=== PATIENT | female | born 1995 | race Caucasian/White ===

== ENCOUNTER 2019-08-15 11:30 | Inpatient (IN) | payer OTHER ==
[2019-08-15] MEDS ORDERED: NS 0.9% 1000 ML** 1,000 ML IV ONE ×2 (11:40→14:05)
[2019-08-15] MEDS ORDERED: Albuterol (2.5 MG) 0.5 % CONC 2.5 MG/0.5 ML NEB.SOLN (ICU and ED only) INH ONE (11:52)
--- NOTE | 2019-08-15 11:55 | ED ---
Respiratory - HPI Summary HPI Summary: Pt is a 23 y/o F presenting to the ED with a chief respiratory complaint. She states that she had a fever initially onset 11 days ago, highest recorded temperature was 102. She was tested for Lyme at , and also went to [facility] where they found fluid in her lungs. She reports SOB, chills, cough, and hoarseness. Sx worse in the morning. She denies recent travel. From [facility] yesterday (08/14/19) her WBC was 22, ESR 85, temperature 101 , HR 114. She was sent home on Azithromycin. - History of Current Complaint Chief Complaint: EDShortnessOfBreath Stated Complaint: POSSIBLE PNEUMONIA Time Seen by Provider: 08/15/19 11:39 Hx Obtained From: Patient Onset/Duration: Gradual Onset, Lasting Days, Still Present Timing: Constant Initial Severity: Mild Current Severity: None Pain Intensity: 0 Character: Cough (Nonproductive) Sputum Amount: None Aggravating Factor(s): Other - worse in the morning Alleviating Factor(s): Nothing Associated Signs and Symptoms: Fever, SOB, Chills, Hoarseness - Allergy/Home Medications Allergies/Adverse Reactions: Allergies Allergy/AdvReac Type Severity Reaction Status Date / Time amoxicillin Allergy Hives Verified 08/15/19 11:37 Penicillins Allergy Hives Verified 08/15/19 11:37 Home Medications: Home Medications Albuterol inh POWDER (NF) [Proair Respiclick] 1 puff INH Q6HR PRN 08/15/19 [ History Confirmed 08/15/19] Azithromycin TAB* [Zithromax TAB (Z-CAMELIA) 250 mg #6 tabs] 2 tab PO .TODAY, THEN 1 DAILY 08/15/19 [History Confirmed 08/15/19] Benzonatate CAP* [Tessalon 100 MG CAP*] 100 mg PO TID PRN 08/15/19 [History Confirmed 08/15/19] PMH/Surg Hx/FS Hx/Imm Hx Previously Healthy: Yes Endocrine/Hematology History: Denies: Hx Diabetes Respiratory History: Reports: Hx Asthma Infectious Disease History: No Infectious Disease History: Denies: Traveled Outside the [place] in Last 30 Days - Family History Known Family History: Positive: Hypertension Negative: Diabetes - Social History Occupation: Student Alcohol Use: Occasionally Hx Substance Use: No Substance Use Type: Reports: None Hx Tobacco Use: No Smoking Status (MU): Never Smoked Tobacco Review of Systems Positive: Fever, Chills, Other - hoarseness Positive: Shortness Of Breath, Cough All Other Systems Reviewed And Are Negative: Yes Physical Exam - Summary Physical Exam Summary: Constitutional: Well-developed, Well-nourished, Alert. (-) Distressed Skin: Warm, Dry HENT: Normocephalic; Atraumatic Eyes: Conjunctiva normal Neck: Musculoskeletal ROM normal neck. (-) JVD, (-) Stridor, (-) Nuchal rigidity Cardio: Rhythm regular, rate tachycardic, Heart sounds normal; Intact distal pulses; Radial pulses are 2+ and symmetric. (-) Murmur Pulmonary/Chest wall: No respiratory distress. Rhonchi in the R upper lobe Abd: Soft, (-) tenderness, (-) Distension, (-) Guarding, (-) Rebound Musculoskeletal: (-) Edema Lymph: (-) Cervical adenopathy Neuro: Alert, Oriented x3 Psych: Mood and affect Normal Triage Information Reviewed: Yes Vital Signs On Initial Exam: Initial Vitals Temp Pulse Resp BP Pulse Ox 97.2 F 112 16 100/66 98 08/15/19 11:34 08/15/19 11:34 08/15/19 11:34 08/15/19 11:34 08/15/19 11:34 Vital Signs Reviewed: Yes Diagnostics - Vital Signs Vital Signs Temp Pulse Resp BP Pulse Ox 08/15/19 11:34 97.2 F 112 16 100/66 98 - Laboratory Result Diagrams: 08/15/19 11:58 08/15/19 11:58 Lab Statement: Any lab studies that have been ordered have been reviewed, and results considered in the medical decision making process. - Radiology CXR Radiology Interpretation Completed By: Radiologist Summary of Radiographic Findings: System with upper right lobe pneumonia. ED physician has reviewed this report. Re-Evaluation - Re-Evaluation First Eval Change: Improved Comment: HR in 120's, likely still elevated 2/2 albuterol. WBC dec to 18 from 22. RUL infiltrate similar to prior. BP 90's systolic, afebrile. Plan for re- eval after IVF. Given azithromycin here for abx, patient reports fam hx cephalosporins therefore will hold ceftriaxone 2nd re-eval Re-Evaluation Time: 14:17 Change: Improved Comment: Pt's HR in 110's. Will give another liter of fluids and pend improvement. 3rd re-eval Re-Evaluation Time: 14:58 Change: Unchanged Comment: Pt is still tachycardic. Finishing 2L of fluids. 4th re-eval Re-Evaluation Time: 15:23 Change: Unchanged Comment: I informed pt of plan to admit for pneumonia and tachycardia. Disposition - Course Course Of Treatment: 23 y/o F w recently diagnosed PNA p/w cough, SOB, persistent tachycardia. - check labs, give IVF, azithromycin and ceftriaxone for CAP check BC. - will give albuterol give hx asthma - Diagnoses Provider Diagnoses: Pneumonia, Tachycardia - Physician Notifications Discussed Care Of Patient With: Yolande Talley Time Discussed With Above Provider: 15:20 Instructed by Provider To: Admit As Inpatient Discharge ED - Sign-Out/Discharge Documenting (check all that apply): Patient Departure - Discharge Plan Condition: Stable Disposition: ADMITTED TO [facility] - Billing Disposition and Condition Condition: STABLE Disposition: Admitted to [facility] - Attestation Statements Document Initiated by Scribe: Yes Documenting Scribe: Evita Garibay Provider For Whom Scribe is Documenting (Include Credential): Juaquin Cisneros MD. Scribe Attestation: I, Evita Garibay, scribed for Juaquin Cisneros MD. on 08/15/19 at 1742. Scribe Documentation Reviewed: Yes Provider Attestation: The documentation as recorded by the scribe, Evita Garibay accurately reflects the service I personally performed and the decisions made by me, Juaquin Cisneros MD. Status of Scribe Document: Viewed Consult Consult: 1241 - I spoke with Dr. You who states that the R upper lobe pneumonia looks similar to yesterday. 1445 - I spoke with Dr. Talley who recommends re-evaluation after another liter of fluids. 1520 - Dr. Talley accepts for admission.
[2019-08-15] MEDS ORDERED: Albuterol 2.5 MG/3 ML NEB.SOL* (0.083%) INH ONE (12:39)
[2019-08-15 12:41] LABS: ALT 12 U/L (7-52); AST 10 U/L (13-39); Albumin 3.1 g/dL (3.2-5.2); Albumin/Globulin Ratio 1.1 (1-3); Alkaline Phosphatase 66 U/L (34-104); BUN/Creatinine Ratio 25.6 (8-20); Blood Urea Nitrogen 10 mg/dL (6-24); CO2 Carbon Dioxide 28 mmol/L (22-32); Chloride 103 mmol/L (101-111); EGFR Non-African American 207.5 (>60); Globulin 2.8 g/dL (2-4); Glucose 90 mg/dL (70-100); Total Protein 5.9 g/dL (6.4-8.9)
[2019-08-15 12:47] LABS: HCG Pregnancy < 0.60 mIU/mL
[2019-08-15] MEDS ORDERED: Azithromycin 500 mg/250 ml NS 500 MG/250 ML BAG IVPB ONE (13:00)
[2019-08-15] MEDS ORDERED: cefTRIAXone(*) 1 GM in NS 0.9% 50 ML* 50 ML IVPB ONE (13:00)
[2019-08-15] MEDS ORDERED: Acetaminophen TAB* 325 MG PO ONE (13:01)
[2019-08-15 13:07] LABS: ABS Eosinophils 0.2 10^3/ul (0-0.6); ABS Monocytes 1.1 10^3/ul (0-0.8); ABS Neutrophils 16.2 10^3/ul (1.5-7.7); Eosinophil % 1.1 %; Hematocrit 28 % (35-47); Hemoglobin 9.6 g/dL (12.0-16.0); Lymphocyte % 5.4 %; Mean Corpuscular HGB Conc 34 g/dL (31-36); Mean Corpuscular Hemoglobin 31 pg (27-31); Mean Corpuscular Volume 90 fL (80-97); Mean Platelet Volume 8.1 fL (7.4-10.4); Platelet Count 409 10^3/uL (150-450); Red Blood Count 3.14 10^6 /uL (3.70-4.87); Red Cell Distribution Width 13 % (10-15); White Blood Count 18.6 10^3/uL (3.5-10.8)
[2019-08-15 13:24] LABS: Anion Gap 8 mmol/L (2-11); Potassium 4.2 mmol/L (3.5-5.0); Sodium 139 mmol/L (135-145)
[2019-08-15 13:25] LABS: Calcium 8.5 mg/dL (8.6-10.3)
[2019-08-15 13:31] LABS: Influenza A Molecular NEGATIVE (Negative); Influenza B Molecular NEGATIVE (Negative)
[2019-08-15] MEDS ORDERED: Levalbuterol 1.25MG/0.5ML NEB INH PRN (16:12)
[2019-08-15] MEDS: Benzonatate CAP* 100 MG PO PRN (17:55)
--- NOTE | 2019-08-15 18:34 | HP ---
CC: [facility] * HISTORY AND PHYSICAL: DATE OF ADMISSION: 08/15/19 PRIMARY CARE PROVIDER: [facility]. CHIEF COMPLAINT: Cough, tachycardia, and fever. HISTORY OF PRESENT ILLNESS: Ms. Thakur is a 23-year-old female who states that approximately 11 days ago she began with a fever. She generally has been feeling poorly, but managing the fever with intermittent ibuprofen dosing. Approximately 3 days ago, she began to have significant cough and she lost her voice completely. She states her voice is now back, however, she continues to have cough. The patient was seen at [facility] yesterday and was started on Z-Jaya for concern of pneumonia. The day prior, she was seen at [facility] and was tested for Lyme disease and other possible sources of fever , however, was not evaluated for respiratory illness. Despite being started on the Z-Jaya, she has continued to have cough and fever. She states temperature this morning was 101. She followed up at [facility] today and it was noted that she was tachycardic. She was referred to the emergency room for evaluation. The patient does state that she has been bringing up sputum when she coughs, she has not inspected it. She has not had any recent travel outside of going to [place] at the end of June. In October 2018, however, the patient spent a month in [place]. She spent November through March of 2018 in [place], studying abroad. PAST MEDICAL HISTORY: None. PAST SURGICAL HISTORY: Tonsillectomy. MEDICATIONS: 1. Z-Jaya. 2. Tessalon Perles. 3. P.r.n. ibuprofen. ALLERGIES: PENICILLIN, which causes hives. FAMILY HISTORY: Mom is living, she is 51, has a history of hypertension and melanoma. Dad is living, he is 53, has a history of melanoma. SOCIAL HISTORY: The patient does not smoke. She drinks alcohol on occasion. 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 She is not . She has no children. She indicates that her mom, Domenica, would be her healthcare proxy. REVIEW OF SYSTEMS: A complete 11-system review of systems is obtained. Pertinent positives and negatives are as per HPI and otherwise negative. PHYSICAL EXAMINATION GENERAL: The patient is a well-developed young female seen sitting up in the stretcher, in no acute distress. VITAL SIGNS: Blood pressure 107/66, pulse 109, respirations 16, temp 97.2, O2 sat 96% on room air. HEENT: Pupils are equal and round. Extraocular muscles are intact. Oropharynx is clear. Oral mucosa is moist. There is no submandibular, cervical , or supraclavicular adenopathy. Thyroid is not enlarged. No thyroid nodules are noted. PULMONARY: Lungs are clear to auscultation bilaterally. CARDIAC: Normal S1, S2. Heart rate is tachycardic, but regular. There is no lower extremity edema. ABDOMEN: Bowel sounds present. Abdomen is soft, nontender, nondistended. MUSCULOSKELETAL: There is no cyanosis or clubbing of the digits. There is full active range of motion of all 4 extremities. NEURO: Cranial nerves II through XII are grossly intact. Sensation is intact to light touch throughout. Strength is 5/5 and symmetric in both upper and lower extremities bilaterally. PSYCH: The patient is alert. She is oriented x3. Affect appears appropriate. SKIN: Visible areas of skin are warm and dry and without rash. DIAGNOSTIC STUDIES/LAB DATA: WBC 18.6, hemoglobin 9.6, hematocrit 28, platelets 409. Sodium 139, potassium 4.2, chloride 103, CO2 of 28, BUN 10, creatinine 0.39, glucose 90, calcium 8.5. Bilirubin 0.3, AST 10, ALT 12, alk phos 66. Albumin 3.1. Influenza A and B negative. ASSESSMENT AND PLAN: Ms. Thakur is a 23-year-old female with no significant past medical history who presents to the emergency room after being reevaluated at [facility] for concerns of pneumonia and found to be tachycardic. 1. Sepsis secondary to community-acquired pneumonia. By definition, the patient is septic with tachycardia and leukocytosis secondary to a right upper lobe pneumonia. Clinically, however, the patient does not appear toxic. Due to her persistent tachycardia and relative hypotension, the decision is to admit the patient to the emergency room to receive IV fluids and IV antibiotics. The patient will also undergo CT scan of the chest to better differentiate the right upper lobe infiltrate. She has been receiving azithromycin for the last 2 days outpatient, and while this may be effective, I am concerned about the resistance rates of the azithromycin and the fact that it is likely not the best choice for a lobar pneumonia. I will send off sputum culture as well as urine for Strep pneumoniae and Legionella antigen. 2. DVT prophylaxis. According to the Adult Thrombosis Prophylaxis Risk Factor Assessment Guide, the patient has a total risk factor score of 0, making her low risk. Ambulation will be utilized as DVT prophylaxis. 3. Code status is full. TIME SPENT: Forty five minutes was spent admitting this patient. [id number]/[facility]PS #: [id number] MTDD
[2019-08-15] MEDS: Calcium Carbonate CHEW TAB* 500 MG (TUMS) PO PRN (21:09)
[2019-08-15] MEDS: Acetaminophen TAB* 325 MG PO PRN (21:09)
[2019-08-16] MEDS: Benzonatate CAP* 100 MG PO PRN ×3 (01:55→18:25)
[2019-08-16] MEDS: NS 0.9% 1000 ML** 1,000 ML IV SCH ×2 (03:31→14:00)
[2019-08-16] MEDS: Acetaminophen TAB* 325 MG PO PRN ×3 (04:49→18:25)
--- NOTE | 2019-08-16 14:47 | PN ---
Subjective Date of Service: 08/16/19 Interval History: Pt is feeling still lousy. She continues to have discomfort in her R chest/R scapula area. She is not coughing as much with the cough suppressant. She is still having tachycardia and fever. Objective Active Medications: Acetaminophen (Tylenol Tab*) 650 mg PO Q6H PRN PRN Reason: MILD PAIN or TEMP > 100.4 Last Admin: 08/16/19 10:30 Dose: 650 mg Benzonatate (Tessalon Cap*) 200 mg PO TID PRN PRN Reason: cough Last Admin: 08/16/19 10:30 Dose: 200 mg Calcium Carbonate (Tums*) 500 mg PO Q4H PRN PRN Reason: INDIGESTION Last Admin: 08/15/19 21:09 Dose: 500 mg Levofloxacin/Dextrose (Levaquin 500 Mg Ivpremix(*)) 500 mg in 100 mls @ 100 mls /hr IVPB Q24H JENELLE; Protocol Sodium Chloride (Ns 0.9% 1000 Ml) 1,000 mls @ 100 mls/hr IV PER RATE JENELLE Last Admin: 08/16/19 14:00 Dose: 100 mls/hr Levalbuterol HCl (Xopenex 1.25 Mg/0.5 Ml Neb.Glenda*) 1.25 mg INH Q6H PRN PRN Reason: SOB/WHEEZING Vital Signs - 8 hr 08/16/19 08/16/19 08/16/19 07:15 08:00 11:05 Temperature 98.4 F 99.4 F Pulse Rate 99 111 Respiratory 18 18 18 Rate Blood Pressure 96/53 109/66 (mmHg) O2 Sat by Pulse 97 97 Oximetry Oxygen Devices in Use Now: None Appearance: Young female sitting up in bed, NAD Eyes: No Scleral Icterus Ears/Nose/Mouth/Throat: Mucous Membranes Moist Respiratory: Symmetrical Chest Expansion and Respiratory Effort, Clear to Auscultation Cardiovascular: NL Sounds; No Murmurs; No JVD, No Edema, - - mildly tachycardic , regular Abdominal: NL Sounds; No Tenderness; No Distention Extremities: No Clubbing, Cyanosis Skin: No Nodules or Sclerosis Neurological: Alert and Oriented x 3 Result Diagrams: 08/15/19 11:58 08/15/19 11:58 Microbiology and Other Data: Microbiology 08/16/19 11:00 Gram Stain - Final Sputum 08/15/19 11:59 Aerobic Blood Culture - Preliminary Blood Venous No Growth Day 1 Anaerobic Blood Culture - Preliminary No Growth Day 1 08/15/19 12:00 Aerobic Blood Culture - Preliminary Blood Venous No Growth Day 1 Anaerobic Blood Culture - Preliminary No Growth Day 1 08/15/19 18:03 Legionella Urinary Antigen - Final Urine Negative Legionella Antigen Streptococcus pneumoniae Ag Screen - Final Negative S. pneumo Antigen Assess/Plan/Problems-Billing Miss Thakur is a 23 yo F who has no significant PMHx who presented to the ER with c/o fever and cough and was diagnosed with sepsis secondary to RUL pneumonia. - Patient Problems (1) Community acquired bacterial pneumonia Current Visit: Yes Status: Acute Code(s): J15.9 - UNSPECIFIED BACTERIAL PNEUMONIA SNOMED Code(s): 486997969 Comment: Pt with dense RUL pneumonia. CT shows dense infiltrate with cavitary lesion and possible lung abscess. ID consult today. Urinary antigens negative. Sputum culture pending. Continue levaquin. I would like the patient to be fever free for 24hr prior to d/c and her HR to normalize. She remains septic but stable. (2) DVT prophylaxis Current Visit: Yes Status: Acute Code(s): Z29.9 - ENCOUNTER FOR PROPHYLACTIC MEASURES, UNSPECIFIED SNOMED Code(s): 225696332 Comment: ambulation (3) Full code status Current Visit: Yes Status: Acute Code(s): Z78.9 - OTHER SPECIFIED HEALTH STATUS SNOMED Code(s): 999485098
[2019-08-16 15:00] LABS: C Reactive Protein 216.87 mg/L (<8.01)
[2019-08-16] MEDS: Levofloxacin 500 MG IVPREMIX(* 500 MG/100 ML BAG IVPB SCH (15:14)
--- NOTE | 2019-08-16 17:02 | CONS ---
CONSULTATION REPORT: DATE OF CONSULT: 08/16/19 PRIMARY CARE PROVIDER: [facility]. PROVIDER REQUESTING CONSULTATION: Dr. Yolande Talley. CONSULTING SERVICE: Infectious Disease. PROVIDER: Cass Nevarez NP ATTENDING PROVIDER: Dr. Mark Lozano.* (DICTATED BY CASS NEVAREZ NP) REASON FOR CONSULTATION: Community-acquired pneumonia with possible abscess. IMPRESSION: 1. Community-acquired pneumonia with lung abscess. Based of the chest CT, there is cavitation noted, this likely represents a lung abscess. With a right upper lobe infiltrate, the differential includes tuberculosis. The patient has had no known exposure to tuberculosis. She had traveled for 2 weeks to [place] late last year. She states she gets yearly tuberculosis testing and had recent skin testing approximately few weeks ago that was negative. She has never had a positive TB test in the past. Low suspicion for tuberculosis at this time. The patient continues to have intermittent fevers with a 101.4 temperature overnight, and continued tachycardia. Additionally, she has leukocytosis with a white blood cell count of 18.6. Legionella and S pneumoniae urine antigens negative. Blood cultures with no growth. I suspect this likely represents a Streptococcus pneumonia based on the imaging findings. She has been tolerating the Levaquin well since here in the hospital. 2. Mild asthma. PLAN/RECOMMENDATIONS: Recommend continuing Levaquin. She will likely need an extended course of IV ABX. Further recommendations will be based on the patient' s clinical course. HISTORY OF PRESENT ILLNESS: Ms. Thakur is a 23-year-old female with past medical history significant for mild asthma, who states that approximately 12 to 14 days ago, she developed fever with associated sweats and chills. Otherwise, she was feeling okay. The fever was controlled with ibuprofen as needed. Approximately 4 days ago, she developed a cough and lost her voice. She reports shortness of breath with lying down, pain in her upper right back. Denying nausea, vomiting, diarrhea, urinary symptoms, rash. Denying any recent weight loss. 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 She denies any known TB contacts. She denies any history of long term time, time, penitentiary time. She traveled last year to [place] for 2 weeks, staying in hotels. Additionally, she spent a few months in [place] in early 2018, also staying in hotels. She reports traveling to [place] at the end of June. Due to her continued symptoms, she was seen at [facility] on 08/14/19 and was diagnosed with possible pneumonia and started on azithromycin. On the day prior to that, she was seen at [facility], tested for Lyme disease and other possible sources of fever. After being started on azithromycin, she continued to have cough and fevers with a fever of 101 on the morning of presentation. She reports some sputum production with cough, but is unsure what this looks like. While at [facility], she was noted to be tachycardic and was sent to the emergency room for further evaluation. While in the emergency room, she was noted to be tachycardic with heart rate in the low 100s. She had leukocytosis with white blood cell count of 18.6. Influenza A and B negative. She had a chest x-ray showing right upper lobe pneumonia. She had a chest CT showing right upper lobe pneumonia with cavitation, possibility of a small lung abscess not excluded and possible early infiltrate in the right lower lobe. She was referred to the hospitalist service for admission. While in the hospital, the patient has received Levaquin due to her PENICILLIN allergy. She continues to have a cough, but feels that this is improved with cough suppressants. She last had fever of 101.4 last evening, has been afebrile since. She continues to be tachycardic with heart rates in the lower 100s to 120s. She has had blood cultures with no growth. Urine antigens for Legionella and S pneumoniae negative. She continues to feel not well with some discomfort in her right scapular area. Denying any chest pain. PAST MEDICAL HISTORY: Mild asthma. PAST SURGICAL HISTORY: Status post tonsillectomy and adenoidectomy. MEDICATIONS: Home medications: 1. Tessalon 100 mg by mouth 3 times daily as needed for cough. 2. ProAir 1 puff inhalation every 6 hours as needed for shortness of breath. 3. Azithromycin pack as directed. Hospital medications: 1. Acetaminophen 650 mg by mouth every 6 hours as needed for fever or pain. 2. Tessalon 200 mg by mouth 3 times daily as needed for cough. 3. Tums 500 mg by mouth every 4 hours as needed for indigestion. 4. Xopenex 1.25 mg inhalation every 6 hours as needed for shortness of breath. 5. Levaquin 500 mg IV every 24 hours. 6. Normal saline 100 mL an hour intravenously. ALLERGIES: AMOXICILLIN and PENICILLIN caused hives. FAMILY HISTORY: Denies family history of coronary artery disease, diabetes. Mother alive at age 51 with a history of hypertension and melanoma. Father alive and well at age 53 with a history of melanoma. Paternal side of her family with significant cancer history including prostate, colon, ovarian sarcoma and the liver cancer. SOCIAL HISTORY: She occasionally drinks alcohol. Denies smoking or recreational drug use. REVIEW OF SYSTEMS: I performed a 10-point review of systems, all the pertinent positives and negatives are mentioned in the history of present illness. The remaining review of systems are negative. PHYSICAL EXAM: Vital Signs: Temperature 99.4, heart rate 111, respiratory rate 18, O2 sat 97% on room air, blood pressure 109/66. General Appearance: The patient is alert, pleasant, appears to be in no acute distress. Head: Normocephalic, atraumatic. Pupils reactive to light. Extraocular movements are intact. Moist mucous membranes. Good dentition. Neck: Supple. Neurological: Alert and oriented x4. Cranial nerves II through XII are grossly intact. Cardiovascular: Heart rate is regular, tachycardic. S1 and S2 present. No murmurs, rubs, or gallops heard. Respiratory: Lung sounds are clear to auscultation bilaterally. There was a few scattered rhonchi in the right upper lobe that cleared with cough. Abdomen: Bowel sounds present. Abdomen is soft, nontender, nondistended. Extremities: No lower extremity edema. Musculoskeletal: No clubbing or cyanosis noted. She has good strength in all extremities. Psychological: Calm and cooperative. Skin: No rashes or abnormalities seen. DIAGNOSTIC STUDIES/LABORATORY DATA: Sodium 139, potassium 4.2, chloride 103, CO2 of 28, BUN 10, creatinine 0.39, glucose 90. White blood cell count 18.6, hemoglobin 9.6, hematocrit 28, platelet count 409,000. Please see impression and recommendations outlined above, recommendations have been discussed with Dr. Yolande Talley. Thank you for asking us to see Ms. Thakur in consultation. The case has been reviewed with my attending, Dr. Mark Lozano, who agrees with the plan of care. Reviewed by LACY MARIN-C 08/20/19 09 [id number]/[facility] #: [id number] MTDD
[2019-08-16] MEDS: Calcium Carbonate CHEW TAB* 500 MG (TUMS) PO PRN (18:26)
[2019-08-16] MEDS: guaiFENesin ER TAB 600 MG PO SCH (20:11)
[2019-08-17] MEDS: NS 0.9% 1000 ML** 1,000 ML IV SCH ×2 (02:31→12:56)
[2019-08-17] MEDS: Benzonatate CAP* 100 MG PO PRN (03:22)
[2019-08-17] MEDS: Acetaminophen TAB* 325 MG PO PRN (03:22)
[2019-08-17 05:42] LABS: ABS Basophils 0.1 10^3/ul (0-0.2); ABS Eosinophils 0.2 10^3/ul (0-0.6); ABS Lymphocytes 1.6 10^3/ul (1.0-4.8); ABS Neutrophils 13.3 10^3/ul (1.5-7.7); Eosinophil % 1.3 %; Hematocrit 29 % (35-47); Hemoglobin 9.6 g/dL (12.0-16.0); Lymphocyte % 9.9 %; Mean Corpuscular HGB Conc 33 g/dL (31-36); Mean Corpuscular Hemoglobin 30 pg (27-31); Mean Corpuscular Volume 91 fL (80-97); Mean Platelet Volume 7.7 fL (7.4-10.4); Platelet Count 461 10^3/uL (150-450); Red Blood Count 3.22 10^6 /uL (3.70-4.87); Red Cell Distribution Width 13 % (10-15); White Blood Count 16.1 10^3/uL (3.5-10.8)
[2019-08-17 05:52] LABS: BUN/Creatinine Ratio 15.3 (8-20); C Reactive Protein 170.36 mg/L (<8.01); Calcium 8.8 mg/dL (8.6-10.3); EGFR African American 155.7 (>60); EGFR Non-African American 128.7 (>60); Potassium 3.9 mmol/L (3.5-5.0)
--- NOTE | 2019-08-17 09:27 | PN ---
Subjective Date of Service: 08/17/19 Interval History: HOSPITALIST PROGRESS NOTE Patient seen and examined at bedside. She feels a little better today. Still had night sweats and fever last night. Productive cough is present, cannot tell me sputum color. Has right shoulder pain, but no chest pain. Had some dyspnea yesterday, received Xopenex, and became more tachycardic. Family History: Unchanged from Admission Social History: Unchanged from Admission Past Medical History: Unchanged from Admission Objective Active Medications: Acetaminophen (Tylenol Tab*) 650 mg PO Q6H PRN PRN Reason: MILD PAIN or TEMP > 100.4 Last Admin: 08/17/19 03:22 Dose: 650 mg Benzonatate (Tessalon Cap*) 200 mg PO TID PRN PRN Reason: cough Last Admin: 08/17/19 03:22 Dose: 200 mg Calcium Carbonate (Tums*) 500 mg PO Q4H PRN PRN Reason: INDIGESTION Last Admin: 08/16/19 18:26 Dose: 500 mg Guaifenesin (Mucinex*) 1,200 mg PO BID JENELLE Last Admin: 08/16/19 20:11 Dose: 1,200 mg Levofloxacin/Dextrose (Levaquin 500 Mg Ivpremix(*)) 500 mg in 100 mls @ 100 mls /hr IVPB Q24H [facility]; Protocol Last Admin: 08/16/19 15:14 Dose: 100 mls/hr Sodium Chloride (Ns 0.9% 1000 Ml) 1,000 mls @ 100 mls/hr IV PER RATE [facility] Last Admin: 08/17/19 02:31 Dose: 100 mls/hr Levalbuterol HCl (Xopenex 1.25 Mg/0.5 Ml Neb.Glenda*) 1.25 mg INH Q6H PRN PRN Reason: SOB/WHEEZING Last Admin: 08/16/19 19:12 Dose: 1.25 mg Vital Signs - 8 hr 08/17/19 08/17/19 08/17/19 03:21 07:15 08:00 Temperature 101 F 98.6 F Pulse Rate 120 96 Respiratory 18 16 16 Rate Blood Pressure 110/53 95/58 (mmHg) O2 Sat by Pulse 96 100 Oximetry Oxygen Devices in Use Now: None Appearance: Young lady lying in bed in NAD Eyes: No Scleral Icterus Ears/Nose/Mouth/Throat: Mucous Membranes Moist Neck: Trachea Midline Respiratory: Symmetrical Chest Expansion and Respiratory Effort, - - BS+ bilaterally with crackles on RUL Cardiovascular: RRR - Normal S1 and S2 Extremities: No Edema Neurological: Alert and Oriented x 3, NL Muscle Strength and Tone Result Diagrams: 08/17/19 05:09 08/17/19 05:09 Microbiology and Other Data: Microbiology 08/16/19 11:00 Gram Stain - Final Sputum 08/15/19 11:59 Aerobic Blood Culture - Preliminary Blood Venous No Growth Day 1 Anaerobic Blood Culture - Preliminary No Growth Day 1 08/15/19 12:00 Aerobic Blood Culture - Preliminary Blood Venous No Growth Day 1 Anaerobic Blood Culture - Preliminary No Growth Day 1 08/15/19 18:03 Legionella Urinary Antigen - Final Urine Negative Legionella Antigen Streptococcus pneumoniae Ag Screen - Final Negative S. pneumo Antigen Assess/Plan/Problems-Billing Assessment: Miss Thakur is a 23 yo F who has no significant PMHx who presented to the ER with c/o fever and cough and was diagnosed with sepsis secondary to RUL pneumonia. - Patient Problems (1) Sepsis Comment: - Met sepsis criteria on admission with fever, tachycardia, and leukocytosis. - Source is pneumonia. (2) Community acquired bacterial pneumonia Comment: - Pt with dense RUL pneumonia. CT shows dense infiltrate with cavitary lesion and possible lung abscess. - Urinary antigens negative. Sputum culture pending. Blood cultures show no growth so far. - She still had fever last night, but WBC and CRP are trending down. - Continue Levofloxacin for now. - Will await ID input. - She reports negative HIV and PPD at [facility]. (3) DVT prophylaxis Comment: - Encourage ambulation. (4) Full code status Status and Disposition: Inpatient.
[2019-08-17] MEDS: guaiFENesin ER TAB 600 MG PO SCH ×2 (10:12→21:21)
--- NOTE | 2019-08-17 15:25 | PN ---
Progress Note - Progress Note Date of Service: 08/17/19 SOAP: Subjective: CC: cough HPI: 23 year old woman with 2 weeks fever, cough, right sided anterior and posterior chest pain; ongoing fever and sweats here, pain the same. Some cough. Negative TST 3 months ago. Appetite fair. Objective: Vital Signs Temp 36.9 C 08/17/19 11:15 Pulse 103 08/17/19 11:15 Resp 18 08/17/19 11:15 BP 98/59 08/17/19 11:15 Pulse Ox 99 08/17/19 11:15 Intake & Output 08/16/19 08/17/19 08/17/19 18:59 06:59 18:59 Intake Total 2140 1389 220 Balance 2140 1389 220 Intake: IV Fluids 970 1284 NS (0.9%) 1284 IVPB 105 ABX - LEVOFLOXACIN 105 Oral 1170 0 220 Gen:awake, no distress HEENT: no thrush Heart:RRR no murmur Lungs: no wheeze or rale; decr BS R upper lung field Skin: no rash Abd:+BS NTND soft LN: no palpable nodes MSK: no spine or chest wall tenderness Laboratory Results - last 24 hr 08/17/19 08/17/19 05:09 05:09 WBC 16.1 H RBC 3.22 L Hgb 9.6 L Hct 29 L MCV 91 MCH 30 MCHC 33 RDW 13 Plt Count 461 H D MPV 7.7 Neut % (Auto) 82.3 Lymph % (Auto) 9.9 Villalba % (Auto) 6.1 Eos % (Auto) 1.3 Baso % (Auto) 0.4 Absolute Neuts (auto) 13.3 H Absolute Lymphs (auto) 1.6 Absolute Monos (auto) 1.0 H Absolute Eos (auto) 0.2 Absolute Basos (auto) 0.1 Absolute Nucleated RBC 0.0 Nucleated RBC % 0.0 Sodium 137 Potassium 3.9 Chloride 104 Carbon Dioxide 24 Anion Gap 9 BUN 9 Creatinine 0.59 Est GFR ( Amer) 155.7 Est GFR (Non-Af Amer) 128.7 BUN/Creatinine Ratio 15.3 Glucose 104 H Calcium 8.8 C-Reactive Protein 170.36 H Microbiology 08/15/19 11:59 Aerobic Blood Culture - Preliminary Blood Venous No Growth Day 2 Anaerobic Blood Culture - Preliminary No Growth Day 2 08/15/19 12:00 Aerobic Blood Culture - Preliminary Blood Venous No Growth Day 2 Anaerobic Blood Culture - Preliminary No Growth Day 2 08/16/19 11:00 Gram Stain - Final Sputum Assessment: 1. Lung abscess, CAP; CRP improving on levaquin so likely usual CAP organisms. I think TB is unlikely but having sputa will be helpful assuming her main therapy is FQ 2. PCN allergy hives; her mother is adamant she will not allow her to have beta lactams of any type Plan: 1. continue levaquin 500 mg IV daily, day 01/25; picc, weekly cbc, cmp, crp and fu 1 week. 2. AFB neg x1, will collect 2 more samples Discussed with Dr Wang 35 minutes floor time >50% face to face in counseling with patient and mother regarding workup
[2019-08-17] MEDS: Levofloxacin 500 MG IVPREMIX(* 500 MG/100 ML BAG IVPB SCH (16:09)
[2019-08-18] MEDS: NS 0.9% 1000 ML** 1,000 ML IV SCH (02:16)
[2019-08-18] MEDS: Acetaminophen TAB* 325 MG PO PRN (04:09)
[2019-08-18 07:02] LABS: ABS Basophils 0.1 10^3/ul (0-0.2); ABS Eosinophils 0.4 10^3/ul (0-0.6); ABS Lymphocytes 1.6 10^3/ul (1.0-4.8); ABS Neutrophils 11.5 10^3/ul (1.5-7.7); Eosinophil % 2.9 %; Hematocrit 29 % (35-47); Hemoglobin 9.9 g/dL (12.0-16.0); Lymphocyte % 11.1 %; Mean Corpuscular HGB Conc 34 g/dL (31-36); Mean Corpuscular Hemoglobin 31 pg (27-31); Mean Corpuscular Volume 90 fL (80-97); Mean Platelet Volume 7.6 fL (7.4-10.4); Nucleated Red Blood Cells % 0.3; Platelet Count 511 10^3/uL (150-450); Red Blood Count 3.24 10^6 /uL (3.70-4.87); Red Cell Distribution Width 13 % (10-15); White Blood Count 14.6 10^3/uL (3.5-10.8)
[2019-08-18 07:06] LABS: BUN/Creatinine Ratio 15.8 (8-20); EGFR Non-African American 133.9 (>60); Potassium 4.1 mmol/L (3.5-5.0)
[2019-08-18 07:07] LABS: C Reactive Protein 111.68 mg/L (<8.01); Calcium 8.8 mg/dL (8.6-10.3)
--- NOTE | 2019-08-18 08:59 | PN ---
Subjective Date of Service: 08/18/19 Interval History: HOSPITALIST PROGRESS NOTE Patient seen and examined at bedside. Care reviewed and d/w Rodney Landis RN. She offers no new complaints today. Still had night sweats, but no fever. Family History: Unchanged from Admission Social History: Unchanged from Admission Past Medical History: Unchanged from Admission Objective Active Medications: Acetaminophen (Tylenol Tab*) 650 mg PO Q6H PRN PRN Reason: MILD PAIN or TEMP > 100.4 Last Admin: 08/18/19 04:09 Dose: 650 mg Benzonatate (Tessalon Cap*) 200 mg PO TID PRN PRN Reason: cough Last Admin: 08/17/19 03:22 Dose: 200 mg Calcium Carbonate (Tums*) 500 mg PO Q4H PRN PRN Reason: INDIGESTION Last Admin: 08/16/19 18:26 Dose: 500 mg Guaifenesin (Mucinex*) 1,200 mg PO BID JENELLE Last Admin: 08/17/19 21:21 Dose: 1,200 mg Levofloxacin/Dextrose (Levaquin 500 Mg Ivpremix(*)) 500 mg in 100 mls @ 100 mls /hr IVPB Q24H [facility]; Protocol Last Admin: 08/17/19 16:09 Dose: 100 mls/hr Sodium Chloride (Ns 0.9% 1000 Ml) 1,000 mls @ 100 mls/hr IV PER RATE JENELLE Last Admin: 08/18/19 02:16 Dose: 100 mls/hr Levalbuterol HCl (Xopenex 1.25 Mg/0.5 Ml Neb.Glenda*) 1.25 mg INH Q6H PRN PRN Reason: SOB/WHEEZING Last Admin: 08/16/19 19:12 Dose: 1.25 mg Vital Signs - 8 hr 08/18/19 04:04 Temperature 100.2 F Pulse Rate 117 Respiratory 18 Rate Blood Pressure 104/61 (mmHg) O2 Sat by Pulse 95 Oximetry Oxygen Devices in Use Now: None Appearance: Young lady sitting up in bed in NAD. Eyes: No Scleral Icterus Ears/Nose/Mouth/Throat: Mucous Membranes Moist Neck: Trachea Midline Respiratory: Symmetrical Chest Expansion and Respiratory Effort, - - BS+ bilaterally with RUL crackles Cardiovascular: RRR - Normal S1 and S2 Extremities: No Edema Neurological: Alert and Oriented x 3, NL Muscle Strength and Tone Result Diagrams: 08/18/19 06:21 08/18/19 06:21 Microbiology and Other Data: Microbiology 08/16/19 11:00 Gram Stain - Final Sputum 08/15/19 11:59 Aerobic Blood Culture - Preliminary Blood Venous No Growth Day 1 Anaerobic Blood Culture - Preliminary No Growth Day 1 08/15/19 12:00 Aerobic Blood Culture - Preliminary Blood Venous No Growth Day 1 Anaerobic Blood Culture - Preliminary No Growth Day 1 08/15/19 18:03 Legionella Urinary Antigen - Final Urine Negative Legionella Antigen Streptococcus pneumoniae Ag Screen - Final Negative S. pneumo Antigen Assess/Plan/Problems-Billing Assessment: Miss Thakur is a 23 yo F who has no significant PMHx who presented to the ER with c/o fever and cough and was diagnosed with sepsis secondary to RUL pneumonia. - Patient Problems (1) Sepsis Comment: - Met sepsis criteria on admission with fever, tachycardia, and leukocytosis. - Source is pneumonia. (2) Community acquired bacterial pneumonia Comment: - Pt with dense RUL pneumonia. CT shows dense infiltrate with cavitary lesion and possible lung abscess. - Urinary antigens negative. Sputum culture pending. Blood cultures show no growth so far. - ID input appreciated - plan for AFBx3, place PICC to complete 28 days of Levofloxacin, weekly CBC, CMP, CRP. Mother declines cephalosporins due to prior allergic reaction to penicillin (hives) despite conversation with ID specialist. Patient and family educated about tendon rupture risk and accept it. - Continue Levofloxacin #02/22. - She reports negative HIV and PPD at [facility]. (3) DVT prophylaxis Comment: - Encourage ambulation. (4) Full code status Status and Disposition: Inpatient.
[2019-08-18] MEDS: guaiFENesin ER TAB 600 MG PO SCH ×2 (09:54→21:12)
[2019-08-18] MEDS: Levofloxacin 500 MG IVPREMIX(* 500 MG/100 ML BAG IVPB SCH (15:30)
[2019-08-18] MEDS: Calcium Carbonate CHEW TAB* 500 MG (TUMS) PO PRN (16:49)
[2019-08-19 07:42] LABS: ABS Basophils 0.1 10^3/ul (0-0.2); ABS Eosinophils 0.5 10^3/ul (0-0.6); ABS Lymphocytes 1.6 10^3/ul (1.0-4.8); ABS Neutrophils 11.3 10^3/ul (1.5-7.7); Eosinophil % 3.2 %; Hematocrit 32 % (35-47); Hemoglobin 10.9 g/dL (12.0-16.0); Mean Corpuscular HGB Conc 34 g/dL (31-36); Mean Corpuscular Hemoglobin 31 pg (27-31); Mean Corpuscular Volume 89 fL (80-97); Mean Platelet Volume 7.4 fL (7.4-10.4); Platelet Count 570 10^3/uL (150-450); Red Blood Count 3.57 10^6 /uL (3.70-4.87); Red Cell Distribution Width 13 % (10-15); White Blood Count 14.4 10^3/uL (3.5-10.8)
[2019-08-19 08:00] LABS: BUN/Creatinine Ratio 16.9 (8-20); C Reactive Protein 83.81 mg/L (<8.01); Calcium 9.3 mg/dL (8.6-10.3); EGFR African American 139.2 (>60); EGFR Non-African American 115.1 (>60); Potassium 4.3 mmol/L (3.5-5.0)
[2019-08-19] MEDS: Benzonatate CAP* 100 MG PO PRN (09:02)
[2019-08-19] MEDS: guaiFENesin ER TAB 600 MG PO SCH ×2 (09:03→20:36)
[2019-08-19] MEDS: Levofloxacin 500 MG IVPREMIX(* 500 MG/100 ML BAG IVPB SCH (15:37)
--- NOTE | 2019-08-19 17:23 | PN ---
Subjective Date of Service: 08/19/19 Interval History: Patient had night sweats again overnight, but less than previous. She is coughing a lot. She has appetite, but not strong. Walked around the nursing stations 2x, but felt dizzy. Family History: Unchanged from Admission Social History: Unchanged from Admission Past Medical History: Unchanged from Admission Objective Active Medications: Acetaminophen (Tylenol Tab*) 650 mg PO Q6H PRN PRN Reason: MILD PAIN or TEMP > 100.4 Last Admin: 08/18/19 04:09 Dose: 650 mg Benzonatate (Tessalon Cap*) 200 mg PO TID PRN PRN Reason: cough Last Admin: 08/19/19 09:02 Dose: 200 mg Calcium Carbonate (Tums*) 500 mg PO Q4H PRN PRN Reason: INDIGESTION Last Admin: 08/18/19 16:49 Dose: 500 mg Guaifenesin (Mucinex*) 1,200 mg PO BID JENELLE Last Admin: 08/19/19 09:03 Dose: 1,200 mg Levofloxacin/Dextrose (Levaquin 500 Mg Ivpremix(*)) 500 mg in 100 mls @ 100 mls /hr IVPB Q24H [facility]; Protocol Last Admin: 08/19/19 15:37 Dose: 100 mls/hr Levalbuterol HCl (Xopenex 1.25 Mg/0.5 Ml Neb.Glenda*) 1.25 mg INH Q6H PRN PRN Reason: SOB/WHEEZING Last Admin: 08/16/19 19:12 Dose: 1.25 mg Vital Signs - 8 hr 08/19/19 08/19/19 11:15 15:46 Temperature 36.9 C 36.7 C Pulse Rate 112 105 Respiratory 16 20 Rate Blood Pressure 105/69 109/65 (mmHg) O2 Sat by Pulse 97 97 Oximetry Oxygen Devices in Use Now: None Appearance: alert, pleasant Eyes: No Scleral Icterus Neck: NL Appearance and Movements; NL JVP Respiratory: Symmetrical Chest Expansion and Respiratory Effort, - - RML rales Cardiovascular: NL Sounds; No Murmurs; No JVD, RRR Abdominal: NL Sounds; No Tenderness; No Distention Neurological: Alert and Oriented x 3 Lines/Tubes/Other Access: Clean, Dry and Intact Peripheral IV Nutrition: Taking PO's Result Diagrams: 08/19/19 07:07 08/19/19 07:07 Additional Lab and Data: Microbiology 08/18/19 11:30 Body Fluid - Sputum Acid Fast Bacilli Smear - Final 08/17/19 21:30 Sputum Expectorated Gram Stain - Final 08/17/19 21:30 Sputum Expectorated Sputum Culture - Final Normal Brook 08/17/19 21:30 Respiratory - Sputum Acid Fast Bacilli Smear - Final 08/16/19 11:00 Sputum Gram Stain - Final 08/16/19 11:00 Sputum Sputum Culture - Final Normal Brook 08/16/19 11:00 Respiratory - Sputum Acid Fast Bacilli Smear - Final 08/15/19 18:03 Urine Legionella Urinary Antigen - Final 08/15/19 18:03 Urine Streptococcus pneumoniae Ag Screen - Final Negative Legionella Antigen Negative S. pneumo Antigen 08/15/19 12:00 Blood Venous Aerobic Blood Culture - Preliminary 08/15/19 12:00 Blood Venous Anaerobic Blood Culture - Preliminary No Growth Day 4 No Growth Day 4 08/15/19 11:59 Blood Venous Aerobic Blood Culture - Preliminary 08/15/19 11:59 Blood Venous Anaerobic Blood Culture - Preliminary No Growth Day 4 No Growth Day 4 Laboratory Tests 08/15/19 12:43 Influenza A (Rapid) Negative Influenza B (Rapid) Negative Microbiology and Other Data: Microbiology Assess/Plan/Problems-Billing Assessment: Miss Thakur is a 23 yo F who has no significant PMHx who presented to the ER with c/o fever and cough and was diagnosed with sepsis secondary to RUL pneumonia. - Patient Problems (1) Community acquired bacterial pneumonia Current Visit: Yes Status: Acute Priority: High Code(s): J15.9 - UNSPECIFIED BACTERIAL PNEUMONIA SNOMED Code(s): 418644553 Comment: - Pt with dense RUL pneumonia. CT shows dense infiltrate with cavitary lesion and possible lung abscess. - All sputum, urine, blood cultures, AFB X3 negative to date - plan PICC to complete 28 days of Levofloxacin, weekly CBC, CMP, CRP. - Continue Levofloxacin #03/25. - long discussion with parents, they would entertain trial of ceftriaxone. (2) DVT prophylaxis Current Visit: Yes Status: Acute Priority: Low Code(s): Z29.9 - ENCOUNTER FOR PROPHYLACTIC MEASURES, UNSPECIFIED SNOMED Code(s): 385562965 Comment: - Encourage ambulation. (3) Sepsis Current Visit: Yes Status: Acute Priority: Medium Comment: - Met sepsis criteria on admission with fever, tachycardia, and leukocytosis. - Source is pneumonia. - Resolved at this time Status and Disposition: Inpatient. Possible discharge tomorrow
[2019-08-20 06:46] LABS: ABS Basophils 0.1 10^3/ul (0-0.2); ABS Eosinophils 0.5 10^3/ul (0-0.6); ABS Lymphocytes 1.9 10^3/ul (1.0-4.8); ABS Monocytes 0.9 10^3/ul (0-0.8); ABS Neutrophils 9.6 10^3/ul (1.5-7.7); Eosinophil % 3.6 %; Hematocrit 31 % (35-47); Hemoglobin 10.5 g/dL (12.0-16.0); Lymphocyte % 14.8 %; Mean Corpuscular HGB Conc 34 g/dL (31-36); Mean Corpuscular Hemoglobin 30 pg (27-31); Mean Corpuscular Volume 90 fL (80-97); Mean Platelet Volume 7.2 fL (7.4-10.4); Platelet Count 578 10^3/uL (150-450); Red Cell Distribution Width 13 % (10-15); White Blood Count 12.9 10^3/uL (3.5-10.8)
[2019-08-20] MEDS ORDERED: NS 0.9% 500 ML* 500 ML IV SCH (09:00)
[2019-08-20] MEDS: guaiFENesin ER TAB 600 MG PO SCH ×2 (09:38→21:12)
--- NOTE | 2019-08-20 14:45 | PN ---
Progress Note - Progress Note Date of Service: 08/20/19 SOAP: Subjective: CC: Right lung abscess HPI: Ms Thakur is a 23 yo female with PMH significant for mild asthma. Denies fever, chills, chest pain, nausea, vomiting, or diarrhea. Reports continued night sweats, and a productive cough. PICC line was placed earlier this afternoon, and she reports discomfort in the right bicep. Objective: Vital Signs - 8 hr 08/20/19 08/20/19 08/20/19 07:05 08:00 08:07 Temperature 96.9 F Pulse Rate 99 Respiratory 16 18 Rate Blood Pressure 88/34 84/58 (mmHg) O2 Sat by Pulse 98 Oximetry Physical Exam: General: NAD, laying in bed Neurological: Alert and Oriented HEENT: Moist MM, no thrush Cardiovascular: Heart rate regular Respiratory: Lung sounds clear, diminished on the right upper lobe Abdominal: Bowel sounds present; ABD soft, non tender and non distended Skin: No rash Laboratory Results - last 24 hr 08/20/19 08/20/19 06:37 06:37 WBC 12.9 H RBC 3.50 L Hgb 10.5 L Hct 31 L MCV 90 MCH 30 MCHC 34 RDW 13 Plt Count 578 H MPV 7.2 L Neut % (Auto) 74.3 Lymph % (Auto) 14.8 Lewis % (Auto) 6.7 Eos % (Auto) 3.6 Baso % (Auto) 0.6 Absolute Neuts (auto) 9.6 H Absolute Lymphs (auto) 1.9 Absolute Monos (auto) 0.9 H Absolute Eos (auto) 0.5 Absolute Basos (auto) 0.1 Absolute Nucleated RBC 0.0 Nucleated RBC % 0.0 C-Reactive Protein 62.38 H Microbiology 08/15/19 12:00 Aerobic Blood Culture - Final Blood Venous No Growth Day 5 Anaerobic Blood Culture - Final No Growth Day 5 08/15/19 11:59 Aerobic Blood Culture - Final Blood Venous No Growth Day 5 Anaerobic Blood Culture - Final No Growth Day 5 08/17/19 21:30 Gram Stain - Final Sputum Expectorated Sputum Culture - Final Normal Prasad 08/18/19 11:30 Acid Fast Bacilli Smear - Final Body Fluid - Sputum 08/16/19 11:00 Gram Stain - Final Sputum Sputum Culture - Final Normal Prasad 08/17/19 21:30 Acid Fast Bacilli Smear - Final Respiratory - Sputum 08/16/19 11:00 Acid Fast Bacilli Smear - Final Respiratory - Sputum 08/15/19 18:03 Legionella Urinary Antigen - Final Urine Negative Legionella Antigen Streptococcus pneumoniae Ag Screen - Final Negative S. pneumo Antigen Assessment: 1. Right lung abscess with CAP. Urine antigens for legionella and S. pneumo negative. Blood cultures with no growth. Sputum culture with normal prasad. CRP continues to improve. 3 negative AFBs. Afebrile since low grade fever 2 days ago. Continues to have mild leukocytosis, but improving. 2. PCN allergy. Hives as an . Mother is adamant that she doesn't want her to have beta lactams. Plan: Continue Levaquin 500 mg IV daily, day 04/24. PICC line was placed earlier today. Weekly labs while on IV ABX: CBC, CRP, and CMP. Followup in the ID office in 1-2 weeks. Will need to have followup imaging near the end of her treatment. 35 minutes floor time: > 50% face to face in counseling with patient and patents regarding ABX treatments, side effects, when to call the office (fever, diarrhea, rash).
[2019-08-20] MEDS: Benzonatate CAP* 100 MG PO PRN (15:45)
[2019-08-20] MEDS: Levofloxacin 500 MG IVPREMIX(* 500 MG/100 ML BAG IVPB SCH (15:46)
--- NOTE | 2019-08-20 16:29 | PN ---
Subjective Date of Service: 08/20/19 Interval History: No new complaints. She had PICC line placed in RT upper arm, was tried on LT first. She is concerned re allergy to PCN, will not take ceftriaxone. Agrees to risk of levaquin with regard to joints, tendons, etc. Family History: Unchanged from Admission Social History: Unchanged from Admission Past Medical History: Unchanged from Admission Objective Active Medications: Acetaminophen (Tylenol Tab*) 650 mg PO Q6H PRN PRN Reason: MILD PAIN or TEMP > 100.4 Last Admin: 08/18/19 04:09 Dose: 650 mg Benzonatate (Tessalon Cap*) 200 mg PO TID PRN PRN Reason: cough Last Admin: 08/20/19 15:45 Dose: 200 mg Calcium Carbonate (Tums*) 500 mg PO Q4H PRN PRN Reason: INDIGESTION Last Admin: 08/18/19 16:49 Dose: 500 mg Guaifenesin (Mucinex*) 1,200 mg PO BID JENELLE Last Admin: 08/20/19 09:38 Dose: 1,200 mg Heparin Sodium (Porcine) (Heparin Flush Picc/Ml/Cvc(*)) 1 - 3 ml FLUSH 0600, 1800 JENELLE; Protocol Last Admin: 08/20/19 15:54 Dose: Not Given Levofloxacin/Dextrose (Levaquin 500 Mg Ivpremix(*)) 500 mg in 100 mls @ 100 mls /hr IVPB Q24H [facility]; Protocol Last Admin: 08/20/19 15:46 Dose: 100 mls/hr Levalbuterol HCl (Xopenex 1.25 Mg/0.5 Ml Neb.Glenda*) 1.25 mg INH Q6H PRN PRN Reason: SOB/WHEEZING Last Admin: 08/16/19 19:12 Dose: 1.25 mg Vital Signs - 8 hr 08/20/19 15:01 Temperature 37.2 C Pulse Rate 95 Respiratory 16 Rate Blood Pressure 99/61 (mmHg) O2 Sat by Pulse 97 Oximetry Oxygen Devices in Use Now: None Appearance: alert, no distress Ears/Nose/Mouth/Throat: Clear Oropharnyx Neck: NL Appearance and Movements; NL JVP Respiratory: Symmetrical Chest Expansion and Respiratory Effort, Clear to Auscultation Neurological: Alert and Oriented x 3 Lines/Tubes/Other Access: Clean, Dry and Intact Peripheral IV Nutrition: Taking PO's Result Diagrams: 08/20/19 06:37 08/19/19 07:07 Microbiology and Other Data: Microbiology 08/18/19 11:30 Body Fluid - Sputum Acid Fast Bacilli Smear - Final 08/17/19 21:30 Sputum Expectorated Gram Stain - Final 08/17/19 21:30 Sputum Expectorated Sputum Culture - Final Normal Brook 08/16/19 11:00 Sputum Gram Stain - Final 08/16/19 11:00 Sputum Sputum Culture - Final Normal Brook 08/16/19 11:00 Respiratory - Sputum Acid Fast Bacilli Smear - Final 08/15/19 18:03 Urine Legionella Urinary Antigen - Final 08/15/19 18:03 Urine Streptococcus pneumoniae Ag Screen - Final Negative Legionella Antigen Negative S. pneumo Antigen 08/15/19 12:00 Blood Venous Aerobic Blood Culture - Final 08/15/19 12:00 Blood Venous Anaerobic Blood Culture - Final No Growth Day 5 No Growth Day 5 08/15/19 11:59 Blood Venous Aerobic Blood Culture - Final 08/15/19 11:59 Blood Venous Anaerobic Blood Culture - Final No Growth Day 5 No Growth Day 5 Assess/Plan/Problems-Billing Assessment: Miss Thakur is a 23 yo F who has no significant PMHx who presented to the ER with c/o fever and cough and was diagnosed with sepsis secondary to RUL pneumonia. - Patient Problems (1) Community acquired bacterial pneumonia Current Visit: Yes Status: Acute Priority: High Code(s): J15.9 - UNSPECIFIED BACTERIAL PNEUMONIA SNOMED Code(s): 036309943 Comment: - All sputum, urine, blood cultures, AFB X3 negative to date - PICC placed today for Levofloxacin, weekly CBC, CMP, CRP. - Continue Levofloxacin #04/24. (2) DVT prophylaxis Current Visit: Yes Status: Acute Priority: Low Code(s): Z29.9 - ENCOUNTER FOR PROPHYLACTIC MEASURES, UNSPECIFIED SNOMED Code(s): 440382619 Comment: - Encourage ambulation. (3) Sepsis Current Visit: Yes Status: Resolved Priority: Medium Comment: - Met sepsis criteria on admission with fever, tachycardia, and leukocytosis. - Source is pneumonia. - Resolved at this time Status and Disposition: Inpatient. Possible discharge tomorrow
[2019-08-20] MEDS: Acetaminophen TAB* 325 MG PO PRN (16:38)
--- NOTE | 2019-08-21 01:18 | DS ---
CC: Dr. Jose Regalado, [facility]; Dr. Mark Lozano, [facility] Infectious Disease DISCHARGE SUMMARY: DATE OF ADMISSION: 08/15/19 DATE OF ANTICIPATED DISCHARGE: 08/21/19 PRIMARY DIAGNOSIS: Severe right upper lobe pneumonia with cavitation. SECONDARY DIAGNOSIS: Sepsis due to pneumonia, resolved. MEDICATIONS ON DISCHARGE: 1. Acetaminophen as needed. 2. Benzonatate 200 mg p.o. t.i.d. p.r.n. 3. Guaifenesin ER 1200 mg p.o. b.i.d. p.r.n. 4. Levofloxacin 500 mg IV daily to complete a 28-day course. Day of discharge is day 6 . 5. Heparin flushes for her PICC line. PROCEDURES: PICC line placement in right brachial vein. CONSULTATION: Dr. Lozano of Infectious Disease. HOSPITAL COURSE: The patient presented to the emergency department from [facility] with 11-day i llness characterized by fever, malaise, and cough. She was found to have sepsis secondary to communi ty-acquired pneumonia with tachycardia and leukocytosis. Her temperature kelly as high as 38.6 and sh e had significant night sweats and fatigue. CT scan on the day of admission showed a right upper lob e infiltrate with cavitation, possible small lung abscess. No pleural effusions. There also may be e cornelio infiltrate in the right lower lobe. The patient was admitted to the hospital and started on int ravenous Levaquin due to PENICILLIN allergy and avoidance of cephalosporins. The patient had multipl e studies to assess for the bacterial causative. Aerobic and anaerobic blood cultures negative after 5 days. Urine Legionella and Streptococcal pneumonia antigens are negative. She has AFB smear negat aisha x3 and acid-fast cultures are pending upon discharge. Gram stain of her sputum showed 4+ neutroph ils and 2+ epithelial cells, but normal prasad. The patient has had a persistent elevated white count , was started at 18.6 and fell to 12.9 on discharge. Otherwise, her platelets kelly from 409 to 578 a nd her hemoglobin remained stable around 9.6 up to 10.5. Thrombocytopenia is due to bone marrow acce leration with her infection. C-reactive protein was 216 on admission and fell to 52.3 on 08/20/19. Other laboratory tests were essentially normal. HCG was negative. Influenza A and B were negative. The patient will be discharged on 08/21/19 with intravenous therapy set up at home. The company will come to the hospital and teach her how to do this for discharge and then see her at around 3 o'clock in the afternoon when she is due for her next dose at her apartment. Her parents were in town and [place] pportive of her and she and her roommates can take of her things when she gets back to [place]. DISPOSITION: To home. She will need accommodations at [place] for parking pass because she has dyspnea on exertion. She ca n return to her usual activities except for sports. STATUS: Inpatient. CONDITION: Stable. DIET: Regular. ACTIVITY: As tolerated. TIME SPENT: More than 50 minutes was spent with the patient today and parents in completing necessar y paperwork for discharge. [id number]/CPS #: [id number]
[2019-08-21] MEDS: Benzonatate CAP* 100 MG PO PRN (07:57)
[2019-08-21] MEDS: guaiFENesin ER TAB 600 MG PO SCH (07:57)
[2019-08-21] MEDS ORDERED: Levofloxacin 500 MG IVPREMIX(* 500 MG/100 ML BAG IVPB SCH (12:00)
[2019-08-21 12:54] VITALS: BP 91/57
--- NOTE | 2019-08-21 23:35 | DS ---
CC: Dr. Jose Regalado, [facility]; Dr. Lozano, Infectious Disease * ADDENDUM: DISCHARGE SUMMARY: DATE OF ADMISSION: 08/15/19 DATE OF DISCHARGE: 08/21/19 PRIMARY DIAGNOSIS: Severe right upper lobe pneumonia. SECONDARY DIAGNOSIS: Sepsis due to pneumonia. MEDICATIONS: Her medication list is unchanged from Dr. De La Paz's discharge summary. The patient did well on her last 24 hours while in the hospital, had a PICC line placed and had all arrangements made to start her outpatient IV Levaquin infusions at home tomorrow. I contacted Dr. Lozano in his office. We will make arrangements for her followup appointment. I did talk to Dr. Lozano's nurse practitioner, Ludmila Herrera, LISA, who tells me that the patient' s followup labs were already ordered. The patient had shown considerable symptomatic improvement and she was felt to be stable to be discharged home today. DISPOSITION: To home. STATUS: Inpatient. CONDITION AT THE TIME OF DISCHARGE: Fair. DIET: Regular. ACTIVITY: As tolerated. TIME SPENT: Approximately 40 minutes was spent to complete this discharge. [id number]/CPS #: [id number]
== END 2019-08-21 14:35 | disposition home or self-care (01) | DRG 871 ==
LOC: ED 11:30 → MED 16:59 → OBSVTOIN 08-16 14:35 → MED 08-17 16:11
PROVIDERS: ADMIT Hospitalist; ATTEND Internal Medicine
PROC: 02HV33Z Insertion of Infusion Device into Superior Vena Cava, Percutaneous Approach (ICD-10-PCS; principal; 2019-08-20)
DX: A41.9 Sepsis, unspecified organism (principal); J85.1 Abscess of lung with pneumonia; D69.6 Thrombocytopenia, unspecified; Z88.0 Allergy status to penicillin; J98.4 Other disorders of lung; J45.909 Unspecified asthma, uncomplicated; Z80.0 Family history of malignant neoplasm of digestive organs; Z82.49 Family history of ischemic heart disease and other diseases of the circulatory system; Z80.8 Family history of malignant neoplasm of other organs or systems; Z72.89 Other problems related to lifestyle; Z80.42 Family history of malignant neoplasm of prostate; Z80.41 Family history of malignant neoplasm of ovary
CPT/HCPCS: 36415; 71046; 71250; 80048; 80053; 83605; 84702; 85025; 86140; 87015; 87040; 87070; 87116; 87205; 87206; 87899; 94640; 96361; 96365; 99284; A9270-GY; C1751; G0378; J0456; J0696; J1956

== ENCOUNTER 2019-08-27 18:05 | Emergency (ER) | payer OTHER ==
[2019-08-27 18:12] VITALS: BP 106/70
== END 2019-08-27 18:57 | disposition left against medical advice (07) ==
LOC: ED 18:05
DX: R42 Dizziness and giddiness (principal); Z53.21 Procedure and treatment not carried out due to patient leaving prior to being seen by health care provider